=== PATIENT | female | born 1965 | race Hispanic/Latino ===

== ENCOUNTER 2019-05-11 07:34 | Day surgery (SDC) | payer BC ==
[2019-05-11] VITALS (8 sets, daily range): BP systolic 90–144; BP diastolic 46–79
[~2019-05-11] VITALS: Ht 160 cm; Wt 68.0 kg
[2019-05-11] MEDS ORDERED: PROPOFOL 10 MG/ML 20ML VIAL IV ONE (10:14)
== END 2019-05-11 11:18 | disposition home or self-care (01) ==
LOC: ENDO 07:34 → DAH 07:34 → ENDO 11:18
PROVIDERS: ATTEND Internal Medicine Gastroenterology
DX: K62.5 Hemorrhage of anus and rectum (principal); K62.89 Other specified diseases of anus and rectum; K64.0 First degree hemorrhoids; Z98.890 Other specified postprocedural states
CPT/HCPCS: 45378; A4215; A4221; A4222; A4223; A4606; A4615; A4663; J2704